=== PATIENT | male | born 1985 | race Caucasian/White ===

== ENCOUNTER 2017-06-14 22:20 | Emergency (ER) | payer SELFPAY ==
[~2017-06-14] VITALS: Ht 175.3 cm; Wt 204.1 kg
[2017-06-14] MEDS ORDERED: IV NORMAL SALINE 1000 ML BAG IV ONE ×2 (22:45→23:45)
[2017-06-14] MEDS ORDERED: ONDANSETRON 4 MG/2 ML VIAL IV ONE (22:45)
[2017-06-14] MEDS ORDERED: HYDROMORPHONE 1 MG/1 ML DISP.SYRIN IV ONE ×3 (22:45→23:45)
[2017-06-14] MEDS ORDERED: KETOROLAC TROMETHAMINE 15 MG INJ IV ONE (22:45)
[2017-06-14 22:48] LABS: BASOPHILS # (AUTO) 0.1 K/uL (0.0-8.0); BASOPHILS % (AUTO) 0.5 % (0.0-2.0); EOSINOPHILS # (AUTO) 0.2 K/uL (0.0-0.7); EOSINOPHILS % (AUTO) 1.1 % (0.0-7.0); HEMATOCRIT 43.2 % (40-50); LYMPHOCYTES # (AUTO) 2.1 K/UL (0.8-4.8); LYMPHOCYTES % (AUTO) 14.5 % (20.5-51.5); MEAN CORPUSCULAR HEMOGLOBIN 24.5 UUG (27.0-31.0); MEAN CORPUSCULAR HGB CONC 32 g/dL (32.0-37.0); MEAN CORPUSCULAR VOLUME 75.7 FL (82.0-92.0); MONOCYTES # (AUTO) 0.7 K/UL (0.1-1.30); MONOCYTES % (AUTO) 4.7 % (0.0-11.0); NEUTROPHILS # (AUTO) 11.1 K/UL (1.8-8.9); NEUTROPHILS % (AUTO) 79.2 % (38.5-71.5); PLATELET COUNT (AUTO) 376 K/UL (150-450); RED BLOOD CELL COUNT(AUTO) 5.71 MIL/UL (4.7-6.1); WHITE BLOOD COUNT (AUTO) 14.2 K/UL (4.0-11.2)
[2017-06-14] MEDS ORDERED: ONDANSETRON 4 MG/2 ML VIAL ONE ×2 (22:51→22:56)
[2017-06-14] MEDS ORDERED: HYDROMORPHONE 1 MG/1 ML DISP.SYRIN ONE ×3 (22:51→23:56)
[2017-06-14] MEDS ORDERED: KETOROLAC TROMETHAMINE 30 MG INJ ONE (22:51)
[2017-06-14 22:54] LABS: *BLOOD, URINE 3+ (NEGATIVE); *CLARITY,URINE CLOUDY (CLEAR); *COLOR,URINE RED (YELLOW); *KETONES,URINE TRACE (NEGATIVE); LEUKOCYTE ESTERASE ,URINE NEGATIVE (NEGATIVE); UGLUCOSE NEGATIVE (NEGATIVE)
[2017-06-14 22:55] LABS: *PROTEIN,URINE 3+ (NEGATIVE)
[2017-06-14 22:57] LABS: *BILIRUBIN,URIN NEGATIVE (NEGATIVE)
[2017-06-14] MEDS ORDERED: KETOROLAC TROMETHAMINE 30 MG INJ IVP ONE (23:00)
[2017-06-14 23:01] LABS: BACTERIA,URINE NONE SEEN /HPF (NONE SEEN); RBC,URINE TNTC /HPF (0-3); SQUAMOUS EPITHELIAL CELL,UR NONE SEEN /HPF (NONE SEEN); WBC,URINE 0-3 /HPF (0-3)
[2017-06-14 23:02] LABS: BILIRUBIN,DIRECT 0.1 mg/dL (0.0-0.2); BILIRUBIN,TOTAL 0.6 mg/dL (0.2-1.0); CREATININE 1.1 mg/dL (0.6-1.3); POTASSIUM 3.7 mmol/L (3.5-5.1); TOTAL PROTEIN, SERUM 8.1 g/dL (6.4-8.2)
[2017-06-14] MEDS ORDERED: TAMSULOSIN HCL 0.4 MG CAP.SR.24H PO ONE (23:45)
[2017-06-15] MEDS ORDERED: TAMSULOSIN HCL 0.4 MG CAP.SR.24H ONE (00:02)
[2017-06-15] MEDS ORDERED: HYDROMORPHONE 1 MG/1 ML DISP.SYRIN IV ONE (01:15)
[2017-06-15] MEDS ORDERED: ONDANSETRON 4 MG/2 ML VIAL IV ONE (01:15)
[2017-06-15] MEDS ORDERED: HYDROMORPHONE 1 MG/1 ML DISP.SYRIN ONE (01:17)
[2017-06-15] MEDS ORDERED: ONDANSETRON 4 MG/2 ML VIAL ONE (01:17)
--- NOTE | 2017-06-15 01:56 | NUR ---
Patient discharged to home in stable conditon. Written and verbal after care instructions given. Patient verbalizes understanding of instructions.
[2017-06-15 01:57] VITALS: BP 117/65
== END 2017-06-15 01:58 | disposition home or self-care (01) ==
LOC: ER 22:21
DX: R31.0 Gross hematuria (principal); Z88.0 Allergy status to penicillin; Z88.8 Allergy status to other drugs, medicaments and biological substances
CPT/HCPCS: 36415; 83690; 85025; A4663; J1170; J1885; J2405; J7030

== ENCOUNTER 2017-06-19 23:45 | Inpatient (IN) | payer BC, MEDICAID ==
[~2017-06-19] VITALS: Ht 175.3 cm; Wt 210.5 kg
[2017-06-20] MEDS ORDERED: HYDROMORPHONE 1 MG/1 ML DISP.SYRIN IM ONE (01:15)
[2017-06-20] MEDS ORDERED: ONDANSETRON IV *ER 4 MG/2 ML VIAL IM ONE (01:15)
[2017-06-20] MEDS ORDERED: IV NORMAL SALINE 1000 ML BAG IV ONE (01:15)
[2017-06-20] MEDS ORDERED: ONDANSETRON 4 MG/2 ML VIAL ONE (01:22)
[2017-06-20] MEDS ORDERED: HYDROMORPHONE 2 MG/1 ML DISP.SYRIN ONE ×3 (01:22→05:10)
[2017-06-20 01:41] LABS: *CLARITY,URINE HAZY (CLEAR); *COLOR,URINE RED (YELLOW)
[2017-06-20 01:42] LABS: *BILIRUBIN,URIN NEGATIVE (NEGATIVE); *BLOOD, URINE 3+ (NEGATIVE); *KETONES,URINE NEGATIVE (NEGATIVE); *PROTEIN,URINE 3+ (NEGATIVE); UGLUCOSE NEGATIVE (NEGATIVE)
[2017-06-20 01:43] LABS: *UROBILINOGEN,URINE 0.2 E.U./dl (NORMAL); BACTERIA,URINE NONE SEEN /HPF (NONE SEEN); LEUKOCYTE ESTERASE ,URINE 1+ (NEGATIVE); NITRITE, URINE NEGATIVE (NEGATIVE); RBC,URINE TNTC /HPF (0-3); SQUAMOUS EPITHELIAL CELL,UR FEW /HPF (NONE SEEN)
[2017-06-20 02:05] LABS: BILIRUBIN,DIRECT 0.1 mg/dL (0.0-0.2); BILIRUBIN,TOTAL 0.4 mg/dL (0.2-1.0); CREATININE 0.9 mg/dL (0.6-1.3); POTASSIUM 3.7 mmol/L (3.5-5.1)
[2017-06-20 02:06] LABS: TOTAL PROTEIN, SERUM 7.5 g/dL (6.4-8.2)
[2017-06-20 02:12] LABS: BASOPHILS % (AUTO) 0.3 % (0.0-2.0); EOSINOPHILS # (AUTO) 0.2 K/uL (0.0-0.7); EOSINOPHILS % (AUTO) 1.8 % (0.0-7.0); HEMATOCRIT 39.3 % (40-50); HEMOGLOBIN 13.1 G/DL (14.0-18.0); LYMPHOCYTES # (AUTO) 1.8 K/UL (0.8-4.8); LYMPHOCYTES % (AUTO) 14.5 % (20.5-51.5); MEAN CORPUSCULAR HEMOGLOBIN 25.3 UUG (27.0-31.0); MEAN CORPUSCULAR HGB CONC 33 g/dL (32.0-37.0); MEAN CORPUSCULAR VOLUME 75.9 FL (82.0-92.0); MONOCYTES # (AUTO) 0.6 K/UL (0.1-1.30); MONOCYTES % (AUTO) 4.7 % (0.0-11.0); NEUTROPHILS % (AUTO) 78.7 % (38.5-71.5); PLATELET COUNT (AUTO) 297 K/UL (150-450); RED BLOOD CELL COUNT(AUTO) 5.18 MIL/UL (4.7-6.1); WHITE BLOOD COUNT (AUTO) 12.6 K/UL (4.0-11.2)
[2017-06-20] MEDS ORDERED: CEFTRIAXONE 1 G in IV DEXTROSE 5% 50 ML IV ONE (02:15)
--- NOTE | 2017-06-20 02:29 | NUR ---
Fluid bolus completed. ABT infusion started, will monitor for any adverse reactions. Pt c/o pain increasing. Dr. Ventura notified. Awaiting fruther orders. Pt repositioned for comfort.
[2017-06-20] MEDS ORDERED: CEFTRIAXONE 1 G VIAL ONE (02:32)
[2017-06-20] MEDS ORDERED: HYDROMORPHONE 1 MG/1 ML DISP.SYRIN IV ONE (02:45)
--- NOTE | 2017-06-20 02:45 | NUR ---
PT UNABLE TO REMEMBER ALL MEDS .WILL TEXT FRIEND IN AM.PT STATES KNOWS THAT HE TAKES FLOMAX AND PAIN MEDS
--- NOTE | 2017-06-20 02:55 | NUR ---
Pt medicated for discomfort, will monitor for effects of medication. Pt resting in position of comfort for self. Admission pending.
[2017-06-20] MEDS ORDERED: HYDROMORPHONE 1 MG/1 ML DISP.SYRIN IV PRN (03:00)
[2017-06-20] MEDS ORDERED: ENOXAPARIN SODIUM 40 MG/0.4 ML DISP.SYRIN SQ SCH (03:00)
[2017-06-20] MEDS ORDERED: MAGNESIUM HYDROXIDE 30 ML LIQUID UDC PO PRN (03:00)
[2017-06-20] MEDS ORDERED: HYDROCODONE/APAP 10-325 MG TABLET PO PRN (03:00)
[2017-06-20] MEDS ORDERED: ACETAMINOPHEN 325 MG TABLET PO PRN (03:00)
[2017-06-20 03:26] LABS: PHOSPHOROUS 2.6 mg/dL (2.5-4.9)
[2017-06-20 04:00] VITALS: BP 142/115
--- NOTE | 2017-06-20 04:02 | NUR ---
Report called to GOVIND Rodrigues. Preparing to transfer pt to the floor
[2017-06-20] MEDS ORDERED: ENOXAPARIN SODIUM 40 MG/0.4 ML DISP.SYRIN SQ ONE (05:11)
--- NOTE | 2017-06-20 06:22 | NUR ---
Admitted this 32 y/o male patient via [facility] awake alert & oriented w/ Dx. Kidney Stone & Intractable pain, no SOB denies chest pain but complaint of bilateral flank discomfort. Initial assessment done. Patient he's urinating bloody urine previously. Offered urinal, no blood in the urine noted. Vital signs are WNL. Medicated w/ Dilaudid IVP for pain, IVF NS at 75 ml/hr started as ordered. Snacks provided, kept comfortable. Will continue to monitor.
--- NOTE | 2017-06-20 06:55 | NUR ---
Patient voided cramberry juice like urine. Urine sample sent to lab for UA C&S. Will continue to monitor.
[2017-06-20] MEDS ORDERED: PANTOPRAZOLE SODIUM 40 MG TABLET.DR PO SCH (07:00)
[2017-06-20] MEDS: IV NS 1000 ML 1,000 ML IV PRN ×2 (07:04→15:27)
--- NOTE | 2017-06-20 07:45 | NUR ---
awake, breakfast served but vomited clear liquid. oral care provided. unable to give zofran ivp, tender to touch iv line. patient started felt better after emesis. will monitor.
[2017-06-20] MEDS ORDERED: HYDROMORPHONE 2 MG/1 ML DISP.SYRIN IV PRN (08:45)
[2017-06-20] MEDS: ONDANSETRON 4 MG/2 ML VIAL IV PRN ×2 (09:22→20:37)
[2017-06-20 11:42] VITALS: BP 116/62
--- NOTE | 2017-06-20 12:35 | NUR ---
spoke with rohith boudreaux dnp about pain med request frequency unable to handle pain till [id number], made order and carried out. patient appreciative of med change.
[2017-06-20] MEDS: HYDROMORPHONE 2 MG/1 ML DISP.SYRIN IV PRN ×7 (12:45→22:39)
--- NOTE | 2017-06-20 15:00 | NUR ---
resting well..taking fluids well.
[2017-06-20 16:00] VITALS: BP 119/54
--- NOTE | 2017-06-20 18:30 | NUR ---
med for pain ,continue cranberry urine. sent urine to lab as ordered. taking fluids well, voiding well
[2017-06-20 19:28] LABS: *URINE TOTAL PROTEIN RANDOM 228.5 mg/dL (<150/24HR)
[2017-06-20 20:00] VITALS: BP 112/73
[2017-06-20] MEDS ORDERED: KETOROLAC TROMETHAMINE 30 MG INJ IVP ONE (22:15)
[2017-06-20] MEDS ORDERED: KETOROLAC TROMETHAMINE 30 MG INJ ONE (22:23)
[2017-06-20] MEDS ORDERED: CEFTRIAXONE 1 G in IV DEXTROSE 5% 50 ML IV SCH (23:00)
== END 2017-06-20 22:45 | disposition home or self-care (01) | DRG 465 ==
LOC: ER 23:47 → MED 06-20 04:23
PROVIDERS: ADMIT Internal Medicine; ATTEND Nurse Practitioner Acute Care
DX: N20.0 Calculus of kidney (principal); E43 Unspecified severe protein-calorie malnutrition; Z68.44 Body mass index [BMI] 60.0-69.9, adult; E66.01 Morbid (severe) obesity due to excess calories; R31.9 Hematuria, unspecified
CPT/HCPCS: 36415; 83690; 83735; 84100; 84156; 85025; 87086; A4663; J0696; J1170; J1650; J1885; J2405; J7030; J7060

== ENCOUNTER 2018-04-15 04:10 | Emergency (ER) | payer MEDICAID ==
[~2018-04-15] VITALS: Ht 175.3 cm; Wt 194.1 kg
[2018-04-15] MEDS ORDERED: KETOROLAC TROMETHAMINE 15 MG INJ IV ONE (05:00)
[2018-04-15] MEDS ORDERED: ONDANSETRON 4 MG/2 ML VIAL IV ONE (05:00)
[2018-04-15] MEDS ORDERED: IV NORMAL SALINE 1000 ML BAG IV ONE (05:00)
--- NOTE | 2018-04-15 05:10 | NUR ---
Patient refused IV placement/Catheter placement. Eloped from ER with stable gait, not endorsing n/v/pain at time of elopement. All belongings with patient. Patient eloped from facility. ER physician notified.
== END 2018-04-15 05:16 | disposition left against medical advice (07) ==
LOC: ER 04:12
DX: R10.9 Unspecified abdominal pain (principal); Z88.0 Allergy status to penicillin; Z88.8 Allergy status to other drugs, medicaments and biological substances
CPT/HCPCS: 99281; A4663